=== PATIENT | female | born 1940 ===

== ENCOUNTER 2020-01-19 09:16 | Outpatient (CLI) | payer MEDICARE, BC ==
--- NOTE | 2020-01-19 09:58 | BD ---
EXAM: DEXA bone density examination HISTORY: Osteoporosis COMPARISON: None FINDINGS: L1--bone mineral density 0.970 g/sq cm; T score -0.2. Z score 2.1 L2--bone mineral density 1.109 g/sq cm; T score 0.7; Z score 3.2 L3--bone mineral density 1.035 g/sq cm; T score -0.4; Z score 2.2 L4--bone mineral density 1.156 g/sq cm; T score 0.9, Z score 3.6 Total L1-L4--bone mineral density 1.074 g/sq cm; T score 0.2, Z score 2.8 Left femoral neck--bone mineral density0.617; T score -2.1, Z score 0.1 Total proximal left femur--bone mineral density 0.844; T score -0.8, Z score 1.1 This patient has a 10 year WHO fracture risk of a major osteoporotic fracture of 8.6% and of a hip fr acture of 2.3%. IMPRESSION: Based on the WHO criteria, the patient's bone mineral density is consideredOsteopenic. T he patient is at moderate risk for fracture.
== END 2020-01-19 09:17 | disposition home or self-care (01) ==
LOC: BICMAMMO 09:16
PROVIDERS: ATTEND Internal Medicine Rheumatology
DX: M81.0 Age-related osteoporosis without current pathological fracture (principal); M85.852 Other specified disorders of bone density and structure, left thigh
CPT/HCPCS: 77080

== ENCOUNTER 2021-08-30 10:43 | Outpatient (CLI) | payer MEDICARE, BC | END 2021-08-30 10:44 | disposition home or self-care (01) | LOC: MRI 10:43 | PROVIDERS: ATTEND Specialist | DX: M51.17 Intervertebral disc disorders with radiculopathy, lumbosacral region (principal); M48.07 Spinal stenosis, lumbosacral region | CPT/HCPCS: 72148 ==